=== PATIENT | male | born 1960 | race Caucasian/White ===

== ENCOUNTER → 2017-06-06 | Outpatient (CLI) | payer OTHER ==
--- NOTE | 2017-06-06 16:12 | MR ---
EXAMINATION TYPE: MR angio head wo con DATE OF EXAM: 06/06/2017 COMPARISON: Prior MRA brain March 02, 2016 HISTORY: Blurred vision, checking for aneurysm TECHNIQUE: Time of flight images focusing on the [place] of [place] were performed without contrast.. 2-D and 3-D postprocessing imaging is performed. FINDINGS: There is a codominant vertebrobasilar system redemonstrated. There is no significant focal stenosis or aneurysmal change in the posterior circulation. Hypoplastic posterior communicating arter ies are noted bilaterally. Images of the anterior circulation show no significant focal stenosis or new aneurysmal change. There is patent anterior communicating artery redemonstrated. Minimal bulge posterior lateral aspect dista l right internal carotid artery seen best image 95 could reflect 2 mm saccular type aneurysm or promi nence at origin of small branching vessel not well identified. This is not significantly changed from prior study. IMPRESSION: No new aneurysmal change at level of [place] of [place].
== END | disposition home or self-care (01) ==
LOC: RADMRIMAIN 14:35
PROVIDERS: ATTEND Psychiatry & Neurology Neurology
DX: I67.1 Cerebral aneurysm, nonruptured (principal); H53.8 Other visual disturbances
CPT/HCPCS: 70544

== ENCOUNTER 2019-02-18 06:20 | Day surgery (SDC) | payer MEDICARE, OTHER ==
[2019-02-12 11:32] VITALS: BMI 28.7
[~2019-02-18 06:20] MED LIST: ALPRAZolam 0.25 MG TAB PO PRN; ALPRAZolam 0.5 MG TAB PO PRN; NITROGLYCERIN SL TABS 0.4 MG TAB SUBLINGUAL PRN; SODIUM CHLORIDE 0.9% 1,000 ML in EMPTY BAG 1 BAG IV ONE
[2019-02-18 06:53] LABS: Glucose,Whole Blood 136 mg/dL (75-99)
[2019-02-18] MEDS ORDERED: ATORVASTATIN 80 MG TAB PO ONE (07:00)
[2019-02-18] MEDS ORDERED: ASPIRIN 325 MG TAB PO ONE (07:00)
[2019-02-18] MEDS ORDERED: VERAPAMIL 2.5 MG/ML 2 ML AMP ONE (07:15)
[2019-02-18] MEDS ORDERED: LIDOCAINE 1% INJ 10MG/ML (20 ML MDV) ONE (07:15)
[2019-02-18] MEDS ORDERED: HEPARIN SODIUM 1,000 UN/ML (10ML VL) ONE (07:15)
[2019-02-18] MEDS ORDERED: MIDAZOLAM (PF) 2 MG/2 ML VIAL IV ONE (07:43)
[2019-02-18] MEDS ORDERED: fentaNYL (PF) 50 MCG/ML 2 ML AMP IV ONE (07:45)
[2019-02-18] MEDS ORDERED: fentaNYL (PF) 50 MCG/ML 2 ML AMP ONE (07:47)
[2019-02-18] MEDS ORDERED: LIDOCAINE 1% INJ 10MG/ML (20 ML MDV) SQ ONE (07:47)
[2019-02-18] MEDS: VERAPAMIL SYRINGE (5 MG/10 ML) INTRAARTER ONE ×2 (07:49→08:56)
[2019-02-18] MEDS ORDERED: TICAGRELOR 90 MG TAB PO ONE (07:58)
[2019-02-18] MEDS ORDERED: TICAGRELOR 90 MG TAB ONE (08:01)
[2019-02-18] MEDS ORDERED: TIROFIBAN BOLUS 12.5MG/250 ML BAG IV ONE (08:04)
[2019-02-18] MEDS ORDERED: TIROFIBAN 12.5MG-250ML NS 250 ML IV ONE (08:05)
[2019-02-18] MEDS ORDERED: IOPAMIDOL-370 100ML BTL INJ ONE ×2 (08:19→08:56)
[2019-02-18] MEDS ORDERED: HYDROmorphone 1 MG/ML 1 ML SYRINGE ONE (08:27)
[2019-02-18] MEDS ORDERED: HYDROmorphone 1 MG/ML 1 ML SYRINGE IVP ONE (08:28)
[2019-02-18] MEDS: NITROGLYCERIN 1000MCG/10ML SYRINGE INTRACORON ONE ×2 (08:43→08:52)
[2019-02-18] MEDS ORDERED: METHOCARBAMOL 750 MG TAB PO PRN (09:10)
[2019-02-18] MEDS ORDERED: ATROPINE SULFATE 0.1 MG/ML 10ML SYRINGE IV PRN (09:12)
[2019-02-18] MEDS ORDERED: MAG HYDROX/AL HYDROX/SIMETH 30 ML CUP PO PRN (09:12)
[2019-02-18] MEDS ORDERED: ZOLPIDEM 5 MG TAB PO PRN (09:12)
[2019-02-18] MEDS ORDERED: RX INFO: IV CONTRAST WAS GIVEN 1 EACH MISC MISCELLANE PRN (09:12)
[2019-02-18] MEDS: SODIUM CHLORIDE 0.9% 1,000 ML IV SCH (09:55)
[2019-02-18] MEDS ORDERED: ACETAMINOPHEN TAB 325 MG TAB PO PRN (10:14)
[2019-02-18 11:46] LABS: Glucose,Whole Blood 160 mg/dL (75-99)
--- NOTE | 2019-02-18 12:16 | CC ---
CARDIAC CATHETERIZATION REPORT LEFT HEART CATHETERIZATION, CORONARY ANGIOGRAPHY AND PTCA ANT STENTING OF PROXIMAL AND MID RCA with RAMÍREZ. DATE OF SERVICE: February 18, 2019 PROCEDURE: 1. Left heart catheterization and coronary angiography. 2. PTCA and stenting of proximal and mid RCA with drug-eluting stents. A very calcified vessel. Moderate Conscious sedation time was 70 min. PERFORMED BY: Dr. William Avendaño. CLINICAL INFORMATION: Jean-Pierre Maldonado is a 59-year-old gentleman with history of type 2 diabetes, hypertension, hyperlipidemia, and past history of smoking who had a positive stress test with inferior wall abnormality was advised coronary angiography after due discussion regarding the rationale, risks, benefits, and options. PROCEDURE NOTE: Under local anesthesia and strict aseptic precautions, a 6-Sudanese introducer was placed in the right radial artery. Using Ultimate 1 catheter I performed selective coronary angiography of both the vessels and also checked LV pressures. LV gram was not performed. I noted that there was a significant lesion in the proximal and mid RCA with a heavily calcified vessel eccentric 70% to 80% lesions. There was also a mid LAD lesion of about 70% or so within a calcified area. Circumflex was nondominant, free of significant disease. I proceeded to perform intervention of the RCA in the same setting. CARDIAC CATHETERIZATION FINDINGS: The left ventricle end-diastolic pressure was about 8 mmHg without any gradient across aortic valve. CORONARY ANGIOGRAPHY FINDINGS: RIGHT CORONARY ARTERY: Technically a dominant vessel that is moderate to heavily calcified. In the proximal portion, there is an eccentric 70% lesion. It gets off a conus branch and acute marginal branch and another second acute marginal branch. After the second acute marginal branch, there is a long calcified segment in which there is an eccentric 70% to 80% stenosis after which the caliber of the vessel decreases just before bifurcation to about 40% and then it bifurcates into PDA and PLV, both of which are fair caliber, fair distribution vessels. The RCA therefore is a dominant, has 2 areas of disease with heavy calcification. LEFT MAIN CORONARY ARTERY: This is a short patent disease-free vessel that bifurcates into LAD and circumflex. Left main itself has mild calcification no significant disease. LEFT ANTERIOR DESCENDING CORONARY ARTERY: Good caliber vessel runs along the anterior wall. In the midportion, there is an eccentric 70% to 80% stenosis after which the caliber improves and the vessel runs all the way to the apex and curves over the apex to supply the inferoapical portion of left ventricle. The mid LAD therefore has a 70% to 80% mid lesion eccentric in nature seen in multiple views. LEFT POSTERIOR CIRCUMFLEX CORONARY ARTERY: Technically nondominant vessel, gives off 2 branches, minor irregularities, no significant disease. LEFT VENTRICULOGRAM: Left ventriculogram was not performed. FINAL IMPRESSION: This patient has a right dominant system. Normal filling pressures. No gradient across there aortic valve. There are two 70% areas of disease in the proximal and mid RCA in a heavily calcified segment. There is diffuse plaque noted in the RCA. The LAD also has a mid lesion of 70% to 80%. The circumflex is free of significant disease and left main is free of significant disease. RECOMMENDATION: I recommended PCI of RCA in the same setting and proceeded to perform this. PCI PROCEDURE DETAILS: I used a standard right Ngozi type guide catheter to cannulate the right coronary artery. I used a run-through wire to cross the lesion, wire was kept distally. The patient received about 5500 units of heparin and ACT was about 260 to 290. Patient also received Aggrastat bolus and infusion per protocol. The patient received 180 mg of Brilinta orally. I used a run-through wire to cross the lesion. I used a 3.25 caliber 12 mm Xience stent and deployed this at the distal lesion which was after an acute marginal branch. The stent was deployed at about 13 atmospheres. Soon after the stent, the next angiogram revealed that there was a dissection at the distal edge of the stent and that extended distally. This was recognized immediately. I then advanced a 3.0 caliber 12 mm Xience stent and tacked the dissection distally and between the 2 stents I used a 3.0 caliber 8 mm long Xience stent and deployed this at 12 atmospheres. Therefore in the mid RCA, there were 3 stents all drug-eluting very well telescoped into each other with excellent angiographic result. I then turned my attention to the proximal lesion which was significant. Using the same balloon from the 8 mm stent, I pre-dilated the proximal lesion. I then deployed an 8 mm 3.0 caliber stent proximally and then telescoped another 12 mm long, 3.0 caliber Xience stent. The proximal area had 2 stents, an 8.0 proximal and 12.0 distal and both of these were 3.0 caliber. Excellent angiographic result without complication was achieved. Results were discussed with the patient and family members. The sheath was taken out and a TR band applied as per protocol with saturation of the the fingers of the right hand of 96%. The findings and results were discussed at length with the patient. He will have a staged intervention of the LAD in the next couple of weeks. The patient if he remains stable, will be discharged tomorrow. MMAMRITA / GOLDIE: [id number] / TRAE
[2019-02-18] MEDS: INSULIN ASPART (NovoLOG) 100 UNIT/ML VIAL SQ SCH ×3 (12:38→21:01)
[2019-02-18 17:21] LABS: Glucose,Whole Blood 115 mg/dL (75-99)
[2019-02-18] MEDS: glipiZIDE 5 MG TAB PO SCH (17:26)
[2019-02-18 20:41] LABS: Glucose,Whole Blood 92 mg/dL (75-99)
[2019-02-18] MEDS ORDERED: ATORVASTATIN 80 MG TAB PO SCH (21:00)
[2019-02-18] MEDS ORDERED: CILOSTAZOL 100 MG TAB PO SCH (21:00)
[2019-02-18] MEDS: TICAGRELOR 90 MG TAB PO SCH (21:10)
[2019-02-18] MEDS: DIVALPROEX SPRINKLE 125 MG CAP.SPRINK PO SCH (21:10)
[2019-02-18] MEDS: cloNIDine HCL 0.1 MG TAB PO SCH (21:10)
[2019-02-18] MEDS: GABAPENTIN 100 MG CAP PO SCH (21:10)
[2019-02-18] MEDS: DIVALPROEX ER 500 MG TAB.ER.24H PO SCH (21:10)
[2019-02-18 22:11] VITALS: RESP 16
[2019-02-19] MEDS: SODIUM CHLORIDE 0.9% 1,000 ML IV SCH (00:43)
[2019-02-19 06:15] LABS: Basophils % (A) 0 %; Eosinophils # (A) 0.2 k/uL (0-0.7); Eosinophils % (A) 2 %; HCT 43.5 % (39.0-53.0); HGB 14.4 gm/dL (13.0-17.5); Lymphocytes # (A) 1.8 k/uL (1.0-4.8); Lymphocytes % (A) 21 %; MCH 29.1 pg (25.0-35.0); MCHC 33.2 g/dL (31.0-37.0); MCV 87.8 fL (80.0-100.0); Mean Platelet Volume 6.5; Monocytes # (A) 0.7 k/uL (0-1.0); Monocytes % (A) 8 %; Neutrophils # (A) 5.8 k/uL (1.3-7.7); Neutrophils % (A) 67 %; Platelet Count 261 k/uL (150-450); RBC 4.96 m/uL (4.30-5.90); RDW 13.3 % (11.5-15.5); WBC 8.6 k/uL (3.8-10.6)
[2019-02-19 06:29] LABS: African American GFR (CKD) >90 (>60 ml/min/1.73 sqM); Anion Gap 9 mmol/L; Blood Urea Nitrogen 13 mg/dL (9-20); Calcium 8.7 mg/dL (8.4-10.2); Carbon Dioxide 22 mmol/L (22-30); Chloride 108 mmol/L (98-107); Glucose 107 mg/dL (74-99); Potassium 3.9 mmol/L (3.5-5.1); Sodium 139 mmol/L (137-145)
[2019-02-19 06:37] LABS: Glucose,Whole Blood 99 mg/dL (75-99)
[2019-02-19] MEDS: INSULIN ASPART (NovoLOG) 100 UNIT/ML VIAL SQ SCH (06:37)
[2019-02-19 08:36] VITALS: BP 161/96; PULSE 82; TEMP 98.2
[2019-02-19] MEDS: TICAGRELOR 90 MG TAB PO SCH (08:37)
[2019-02-19] MEDS: glipiZIDE 5 MG TAB PO SCH (08:37)
[2019-02-19] MEDS: DIVALPROEX ER 500 MG TAB.ER.24H PO SCH (08:37)
[2019-02-19] MEDS: DIVALPROEX SPRINKLE 125 MG CAP.SPRINK PO SCH (08:37)
[2019-02-19] MEDS: cloNIDine HCL 0.1 MG TAB PO SCH (08:37)
--- NOTE | 2019-02-19 08:37 | DS ---
DISCHARGE SUMMARY DATE OF ADMISSION: 02/18/2019. DATE OF DISCHARGE: 02/19/2019. DIAGNOSES: 1. Unstable angina. 2. Type 2 diabetes mellitus. 3. Hypertension. 4. Hyperlipidemia. 5. History of seizure disorder. 6. History of some anxiety disorder. This gentleman was admitted to the hospital for an elective cardiac cath in view of an abnormal stress test after due discussion regarding risks, benefits, and options. Cardiac cath revealed 2 lesions in a very calcified RCA that was a dominant vessel in the proximal and midportion. There was also a mid LAD lesion. Circumflex did not have significant disease. I performed stenting of the RCA lesions in 2 areas with drug- eluting stents. There was a small dissection at the distal edge of the first stent and additional 2 stents were deployed. Excellent angiographic result was achieved. Postprocedure course was uneventful. Procedure was performed from the right radial approach. This morning, patient is asymptomatic. Right radial site is clean and dry. EKG and laboratory data are unremarkable. Blood pressure is 118/70, pulse rate is 70 per minute. HEENT: Unremarkable. Fundus was not examined by me. Neck is supple. No JVD. There is no carotid bruit. S1, S2 heard normally. Lungs are clear. Abdomen and lower extremity exam unchanged. Right radial site is clean and dry with a good pulse. Plan is to discharge the patient today on dual antiplatelet therapy and increase dose of statin at 80 mg of Lipitor daily. Discharge instructions regarding activity, diet and medications were given. He will be discharged today and I will see him in the office on the at 3:15 p.m. in [place]. MMFREIDAL / JWN: [id number] /
[2019-02-19] MEDS: GABAPENTIN 100 MG CAP PO SCH (08:38)
[2019-02-19] MEDS ORDERED: ASPIRIN 81 MG PO SCH (09:00)
[2019-02-19] MEDS ORDERED: METOPROLOL SUCCINATE (ER) 50 MG TAB.ER.24H PO SCH (09:00)
[2019-02-19] MEDS ORDERED: LOSARTAN-HCTZ 50-12.5 MG 1 EACH TAB PO SCH ×2 (09:00)
[2019-02-19] MEDS ORDERED: amLODIPine 10 MG TAB PO SCH (09:00)
[2019-02-19] MEDS ORDERED: VENLAFAXINE HCL ER 37.5 MG CAP PO SCH (09:00)
== END 2019-02-19 09:28 | disposition home or self-care (01) ==
LOC: CATHCVL 06:20 → 3SCARD 09:14 → CATHCVL 02-19 09:28
PROVIDERS: ATTEND Internal Medicine Interventional Cardiology
DX: I25.110 Atherosclerotic heart disease of native coronary artery with unstable angina pectoris (principal); I25.84 Coronary atherosclerosis due to calcified coronary lesion; I25.42 Coronary artery dissection; I10 Essential (primary) hypertension; E11.8 Type 2 diabetes mellitus with unspecified complications; Z72.0 Tobacco use; G40.909 Epilepsy, unspecified, not intractable, without status epilepticus; Z82.49 Family history of ischemic heart disease and other diseases of the circulatory system; F41.9 Anxiety disorder, unspecified; Z79.84 Long term (current) use of oral hypoglycemic drugs; Z79.02 Long term (current) use of antithrombotics/antiplatelets; Z79.82 Long term (current) use of aspirin; Z79.899 Other long term (current) drug therapy; Z88.0 Allergy status to penicillin
CPT/HCPCS: 94760; 93458; 80048; 85025; C9600; C1887; C1769 ×2; C1874; C1894; J2001; J3010; J1170; J1644; J3246; Q9967; J2250

== ENCOUNTER 2019-03-05 09:06 | Day surgery (SDC) | payer MEDICARE ==
[~2019-03-05 09:06] MED LIST changes: +ASPIRIN 325 MG TAB PO STA; +ATORVASTATIN 80 MG TAB PO STA
[2019-03-05 09:44] LABS: Glucose,Whole Blood 155 mg/dL (75-99)
[2019-03-05] MEDS ORDERED: MIDAZOLAM (PF) 2 MG/2 ML VIAL IVP ONE (11:03)
[2019-03-05] MEDS ORDERED: LIDOCAINE 1% INJ 10MG/ML (20 ML MDV) SQ ONE (11:05)
[2019-03-05] MEDS ORDERED: VERAPAMIL SYRINGE (5 MG/10 ML) INTRAARTER ONE (11:06)
[2019-03-05] MEDS ORDERED: BIVALIRUDIN BOLUS 250 MG/50 ML IV ONE (11:10)
[2019-03-05] MEDS ORDERED: BIVALIRUDIN 250 MG in SODIUM CHLORIDE 0.9% 50 ML IV ONE (11:12)
[2019-03-05] MEDS ORDERED: IOPAMIDOL-370 100ML BTL INJ ONE ×2 (11:36→11:47)
[2019-03-05] MEDS ORDERED: NITROGLYCERIN 1000MCG/10ML SYRINGE INTRACORON ONE (11:41)
[2019-03-05] MEDS ORDERED: TICAGRELOR 90 MG TAB PO ONE (11:47)
[2019-03-05] MEDS: SODIUM CHLORIDE 0.9% 1,000 ML IV SCH ×2 (12:00→17:41)
[2019-03-05] MEDS ORDERED: MAG HYDROX/AL HYDROX/SIMETH 30 ML CUP PO PRN (12:05)
[2019-03-05] MEDS ORDERED: ATROPINE SULFATE 0.1 MG/ML 10ML SYRINGE IV PRN (12:05)
[2019-03-05] MEDS ORDERED: ZOLPIDEM 5 MG TAB PO PRN (12:05)
[2019-03-05] MEDS ORDERED: NITROGLYCERIN SL TABS 0.4 MG TAB SUBLINGUAL PRN ×2 (12:05→12:08)
[2019-03-05] MEDS ORDERED: RX INFO: IV CONTRAST WAS GIVEN 1 EACH MISC MISCELLANE PRN (12:05)
[2019-03-05] MEDS ORDERED: METHOCARBAMOL 750 MG TAB PO PRN (12:08)
--- NOTE | 2019-03-05 13:02 | PTCA ---
PERCUTANEOUSTRANS CORORONARY ANGIOGRAPHY DATE OF SERVICE: 03/05/2019. PROCEDURE: PTCA and stenting of mid LAD with a drug-eluting stent. PERFORMED BY: Dr. William Avendaño. Moderate conscious sedation time was 44 minutes. Patient was administered Versed. His oxygen saturation, hemodynamics and EKG were monitored closely. CLINICAL INFORMATION: Mr. Jean-Pierre Maldonado is a 59-year-old gentleman with strong family history of CAD, hypertension, diabetes, hyperlipidemia, seizure disorder, who underwent a cardiac cath because of abnormal stress test on February 18 and this study revealed significant lesions in the proximal and mid RCA. There was also a mid LAD lesion of 70% eccentric in nature. Circumflex did not have significant disease. On 02/18/2019, I performed stenting of proximal and mid RCA with five drug-eluting stents. There was a small dissection requiring additional stents. He is now being brought in for elective PCI of mid LAD which had a significant lesion. Rationale, risks, benefits, options were discussed with the patient and family. PROCEDURE NOTE: Under strict aseptic precautions and local anesthesia, a 6-Bengali introducer was placed in the right radial artery. Using a standard right Ngozi catheter, I performed selective coronary angiography of the right coronary artery. The RCA was widely patent. I then proceeded to perform intervention of the left system. Initially I used an Ultimate 1 guide catheter but I did not have a good guide support. I switched over to a Voda 3.5 catheter and with this I was able to cannulate the left coronary artery very well. Left main was quite long. A run-through wire was used to cross the lesion. Predilatation was performed with a 2.5 caliber 12 mm long NC Trek balloon at 12 atmospheres. I then deployed a 12 mm long 2.75 caliber Xience stent at 12 atmospheres. Patient had an excellent angiographic result. He did not have any chest pain or EKG changes. He received Angiomax bolus and infusion as per protocol. He was already on Brilinta and aspirin. I gave an additional dose of Brilinta 90 mg today. The sheath was taken out and TR band applied as per protocol. The saturation of the fingers of the right hand of more than 94%. Results were discussed with the patient and family and I expect he will be discharged tomorrow. Excellent angiographic result without complication was achieved of the mid LAD. The previously stented RCA on February 18 was widely patent with remarkably good flow. MMODL / IJN: [id number] /
[2019-03-05 14:16] LABS: Glucose,Whole Blood 137 mg/dL (75-99)
[2019-03-05 17:20] LABS: Glucose,Whole Blood 117 mg/dL (75-99)
[2019-03-05 17:37] VITALS: RESP 16
[2019-03-05] MEDS: glipiZIDE 5 MG TAB PO SCH (17:39)
[2019-03-05] MEDS: TICAGRELOR 90 MG TAB PO SCH (20:35)
[2019-03-05] MEDS: cloNIDine HCL 0.1 MG TAB PO SCH (20:35)
[2019-03-05] MEDS: GABAPENTIN 100 MG CAP PO SCH (20:36)
[2019-03-05] MEDS ORDERED: DIVALPROEX ER 500 MG TAB.ER.24H PO SCH (21:00)
[2019-03-05 21:29] LABS: Glucose,Whole Blood 118 mg/dL (75-99)
[2019-03-06 06:17] LABS: Glucose,Whole Blood 127 mg/dL (75-99)
[2019-03-06 06:56] LABS: Basophils % (A) 1 %; Eosinophils # (A) 0.2 k/uL (0-0.7); Eosinophils % (A) 2 %; HGB 13.9 gm/dL (13.0-17.5); Lymphocytes # (A) 1.8 k/uL (1.0-4.8); Lymphocytes % (A) 25 %; MCH 29.4 pg (25.0-35.0); MCV 89.2 fL (80.0-100.0); Mean Platelet Volume 6.8; Monocytes # (A) 0.7 k/uL (0-1.0); Monocytes % (A) 9 %; Neutrophils # (A) 4.5 k/uL (1.3-7.7); Neutrophils % (A) 62 %; Platelet Count 234 k/uL (150-450); RBC 4.71 m/uL (4.30-5.90); RDW 13.4 % (11.5-15.5); WBC 7.2 k/uL (3.8-10.6)
[2019-03-06 07:10] LABS: African American GFR (CKD) >90 (>60 ml/min/1.73 sqM); Anion Gap 7 mmol/L; Blood Urea Nitrogen 15 mg/dL (9-20); Calcium 8.8 mg/dL (8.4-10.2); Carbon Dioxide 28 mmol/L (22-30); Chloride 106 mmol/L (98-107); Glucose 125 mg/dL (74-99); Potassium 4.1 mmol/L (3.5-5.1); Sodium 141 mmol/L (137-145)
[2019-03-06] MEDS: glipiZIDE 5 MG TAB PO SCH (07:34)
[2019-03-06 08:00] VITALS: TEMP 98.3
[2019-03-06] MEDS: GABAPENTIN 100 MG CAP PO SCH (08:05)
[2019-03-06] MEDS: TICAGRELOR 90 MG TAB PO SCH (08:16)
[2019-03-06] MEDS: cloNIDine HCL 0.1 MG TAB PO SCH (08:16)
[2019-03-06] MEDS ORDERED: VENLAFAXINE HCL ER 37.5 MG CAP PO SCH (09:00)
[2019-03-06] MEDS ORDERED: DIVALPROEX SPRINKLE 125 MG CAP.SPRINK PO SCH (09:00)
[2019-03-06] MEDS ORDERED: LOSARTAN-HCTZ 50-12.5 MG 1 EACH TAB PO SCH ×2 (09:00→17:30)
[2019-03-06] MEDS ORDERED: METOPROLOL SUCCINATE (ER) 50 MG TAB.ER.24H PO SCH (09:00)
[2019-03-06] MEDS ORDERED: DIVALPROEX ER 500 MG TAB.ER.24H PO SCH (09:00)
[2019-03-06] MEDS ORDERED: ASPIRIN 81 MG PO SCH (09:00)
[2019-03-06] MEDS ORDERED: amLODIPine 10 MG TAB PO SCH (09:00)
[2019-03-06 09:21] VITALS: BP 126/86; PULSE 69
[2019-03-06 10:55] VITALS: BMI 29.7
--- NOTE | 2019-03-06 12:07 | DS ---
DISCHARGE SUMMARY DATE OF ADMISSION: 03/05/2019 DATE OF DISCHARGE: 03/06/2019 DIAGNOSES: 1. Coronary artery disease with unstable angina brought in for elective PCI of the LAD. He had a previous RCA PCI. 2. Hypertension. 3. Hyperlipidemia. 4. History of seizure disorder. This gentleman was brought in electively for PCI of LAD. From the right radial approach, coronary angiography revealed that the previously stented RCA was widely patent with remarkably good flow. I performed an LAD PCI with a drug-eluting stent with excellent result. Postprocedure course was uneventful. His labs and EKG were unremarkable. PHYSICAL EXAMINATION: Blood pressure is 118/70, pulse rate is 70 per minute. No JVD or carotid bruit. S1, S2 heard normally. Lungs are clear. Abdomen and lower extremity exam were unremarkable. His right radial cath site is clean and dry with a good pulse. The rest of physical examination is unchanged. He can be discharged today. He has all his medications. No prescriptions were given. Discharge instructions regarding activity, diet, medications, and appointment was given. I will see him next in the office in [place]. MMFREIDAL / GOLDIE: [id number] /
[2019-03-06] MEDS ORDERED: ATORVASTATIN 80 MG TAB PO SCH (21:00)
== END 2019-03-06 11:18 | disposition home or self-care (01) ==
LOC: CATHCVL 09:06 → 3SCARD 16:44 → CATHCVL 03-06 11:18
PROVIDERS: ATTEND Internal Medicine Interventional Cardiology
DX: I25.110 Atherosclerotic heart disease of native coronary artery with unstable angina pectoris (principal); I10 Essential (primary) hypertension; E78.5 Hyperlipidemia, unspecified; G40.909 Epilepsy, unspecified, not intractable, without status epilepticus; E11.9 Type 2 diabetes mellitus without complications; Z95.5 Presence of coronary angioplasty implant and graft; E78.00 Pure hypercholesterolemia, unspecified; Z79.899 Other long term (current) drug therapy; Z79.82 Long term (current) use of aspirin; Z79.02 Long term (current) use of antithrombotics/antiplatelets; Z82.49 Family history of ischemic heart disease and other diseases of the circulatory system; Z88.0 Allergy status to penicillin; Z79.4 Long term (current) use of insulin
CPT/HCPCS: 80048; 85025; C9600; C1887 ×2; C1725; C1769 ×2; C1874; C1894; J2001; J0583; Q9967; J2250